=== PATIENT | female | born 1955 | race Caucasian/White ===

== ENCOUNTER 2016-04-19 08:45 | Emergency (ER) | payer OTHER ==
[~2016-04-19] VITALS: Ht 172.7 cm; Wt 50.0 kg
[~2016-04-19 08:45] MED LIST: ASPI325T PO; BLAC20TA PO
[2016-04-19 08:47] VITALS: BP 190/95; PULSE 114; RESP 24; TEMP 97.8; O2SAT 94
[2016-04-19] MEDS: RESP: ALBUTEROL 2.5 MG/IPRATROPIUM 0.5 MG NEB (SCH) INH (09:10)
[2016-04-19] MEDS ORDERED: SODIUM CHLORIDE 0.9% FLUSH 5 ML FLUSH IVF PRN (09:15)
[2016-04-19] MEDS ORDERED: methylPREDNISolone SOD SUCC 125 MG/2 ML VIAL IVP ONE (09:15)
[2016-04-19 09:47] LABS: AUTOMATED NEUTROPHIL # 2.5 TH/MM3 (1.8-7.7); BASOPHIL % 0.3 % (0.0-2.0); EOSINOPHIL # 0.2 TH/MM3 (0-0.4); EOSINOPHIL % 3.6 % (0.0-4.0); HEMATOCRIT 41.2 % (35.0-46.0); HEMO FLAGS DIFF FINAL; LYMPH % 36.5 % (9.0-44.0); LYMPHOCYTE # 1.8 TH/MM3 (1.0-4.8); MEAN CELL VOLUME 91.3 FL (80.0-100.0); MEAN CORPUSCULAR HEMOGLOBIN 32.2 PG (27.0-34.0); MEAN CORPUSCULAR HGB CONC 35.2 % (32.0-36.0); MONO % 7.6 % (0.0-8.0); PLATELET COUNT 173 TH/MM3 (150-450); RED BLOOD COUNT 4.51 MIL/MM3 (4.00-5.30); RED CELL DISTRIBUTION WIDTH 13.5 % (11.6-17.2); WHITE BLOOD COUNT 4.9 TH/MM3 (4.0-11.0)
[2016-04-19] MEDS ORDERED: VENTAER INH (09:50)
[2016-04-19 09:59] LABS: ALT (GPT) 68 U/L (10-53); ANION GAP 6 MEQ/L (5-15); AST (GOT) 62 U/L (15-37); BICARBONATE 28.9 MEQ/L (21.0-32.0); BLOOD UREA NITROGEN 18 MG/DL (7-18); CHLORIDE 108 MEQ/L (98-107); GLOMERULAR FILTRATION RATE 93 ML/MIN (>89); POTASSIUM 3.8 MEQ/L (3.5-5.1); SODIUM (NA) 143 MEQ/L (136-145)
[2016-04-19 10:01] LABS: ALKALINE PHOSPHATASE 96 U/L (45-117); TOTAL BILIRUBIN ADULT 0.4 MG/DL (0.2-1.0)
--- NOTE | 2016-04-19 10:24 | RADRPT ---
EXAM DATE/TIME: 04/19/2016 10:10 [place] COMPARISON: CHEST PA & LAT, May 10, 2013, 10:24. INDICATIONS : Shortness of breath. MEDICAL HISTORY : None. SURGICAL HISTORY : None. ENCOUNTER: Initial ACUITY: 1 day PAIN SCORE: 5/10 LOCATION: Bilateral chest FINDINGS: PA and lateral views of the chest demonstrate the lungs to be symmetrically aerated without evidence of mass, infiltrate or effusion. The cardiomediastinal contours are unremarkable. Osseous structure s are intact. CONCLUSION: No evidence of acute cardiopulmonary disease. Filipe Xiao MD on April 19, 2016 at 10:22 Board Certified Radiologist. This report was verified electronically.
[2016-04-19] MEDS ORDERED: PRED5TAB PO (11:35)
[2016-04-19] MEDS ORDERED: CIPR750T2 PO (11:35)
--- NOTE | 2016-04-19 11:35 | PD ---
HPI Chief Complaint: Respiratory Symptoms Time Seen by Provider: 08:58 Travel History International Travel<30 days: No Contact w/Intl Traveler<30days: No Traveled to known affect area: No History of Present Illness HPI Patient is a 60 year old female who comes in complaining of SOB and cough. She has history of COPD and says this has been going on for about a month on and off. She says it got worse yesterday. She used her last albuterol this morning. She denies fever or chills. She says she has some chest pain, but only with coughing. She says she quit smoking 2 months ago. PFSH Past Medical History Asthma: Yes Diminished Hearing: No Respiratory: Yes Immunizations Current: No Influenza Vaccination: No Menopausal: Yes : 5 Para: 4 Tubal Ligation: Yes Past Surgical History Other Surgery: Yes (CYST REMOVED FROM BREAST; BRAST REDUCTION) Social History Alcohol Use: No Tobacco Use: No (QUIT FOUR MONTHS AGO) Substance Use: No Allergies-Medications (Allergen,Severity, Reaction): Coded Allergies: Penicillin (Verified Allergy, Severe, 12/24/15) Reported Meds & Prescriptions Reported Meds & Active Scripts Active Reported Ventolin Hfa 18 GM Inh (Albuterol Sulfate) 90 Mcg/Act Aer 1 Puff INH Q4H PRN Review of Systems Except as stated in HPI: all other systems reviewed are Neg General / Constitutional: No: Fever, Chills Eyes: No: Blurred Vision HENT: No: Headaches, Lightheadedness Respiratory: Positive: Cough, Shortness of Breath Gastrointestinal: No: Nausea, Vomiting Musculoskeletal: No: Myalgias, Edema Skin: No Rash, No Change in Pigmentation Neurologic: No: Weakness, Dizziness Physical Exam Narrative GENERAL: Awake and alert, in no acute distress. SKIN: Warm and dry. HEAD: Atraumatic. Normocephalic. EYES: Pupils equal and round. No scleral icterus. ENT: Mucous membranes pink and moist. NECK: Trachea midline. No JVD. CARDIOVASCULAR: Regular rate and rhythm. No murmur appreciated. RESPIRATORY: No accessory muscle use. Coarse breath sounds, occasional wheezing throughout the lungs. Breath sounds equal bilaterally. MUSCULOSKELETAL: No obvious deformities. No clubbing. No cyanosis. No edema. NEUROLOGICAL: Awake and alert. No obvious cranial nerve deficits. Motor grossly within normal limits. Normal speech. PSYCHIATRIC: Appropriate mood and affect; insight and judgment normal. Data Data Last Documented VS Vital Signs Date Time Temp Pulse Resp B/P Pulse Ox O2 Delivery O2 Flow Rate FiO2 04/19/16 08:47 97.8 114 24 190/95 94 Room Air Orders Complete Blood Count With Diff (04/19/16 09:04) Comprehensive Metabolic Panel (04/19/16 09:04) Iv Access Insert/Monitor (04/19/16 09:04) Ecg Monitoring (04/19/16 09:04) Oximetry (04/19/16 09:04) Oxygen Administration (04/19/16 09:04) Chest, Pa & Lat (04/19/16 09:04) Sodium Chloride 0.9% Flush (Ns Flush) (04/19/16 09:15) Methylprednisolone So Succ Inj (Solumedr (04/19/16 09:15) Albuterol-Ipratropium Neb (Duoneb Neb) (04/19/16 09:15) Labs Laboratory Tests Test 04/19/16 08:30 White Blood Count 4.9 TH/MM3 Red Blood Count 4.51 MIL/MM3 Hemoglobin 14.5 GM/DL Hematocrit 41.2 % Mean Corpuscular Volume 91.3 FL Mean Corpuscular Hemoglobin 32.2 PG Mean Corpuscular Hemoglobin 35.2 % Concent Red Cell Distribution Width 13.5 % Platelet Count 173 TH/MM3 Mean Platelet Volume 9.6 FL Neutrophils (%) (Auto) 52.0 % Lymphocytes (%) (Auto) 36.5 % Monocytes (%) (Auto) 7.6 % Eosinophils (%) (Auto) 3.6 % Basophils (%) (Auto) 0.3 % Neutrophils # (Auto) 2.5 TH/MM3 Lymphocytes # (Auto) 1.8 TH/MM3 Monocytes # (Auto) 0.4 TH/MM3 Eosinophils # (Auto) 0.2 TH/MM3 Basophils # (Auto) 0.0 TH/MM3 CBC Comment DIFF FINAL Differential Comment Sodium Level 143 MEQ/L Potassium Level 3.8 MEQ/L Chloride Level 108 MEQ/L Carbon Dioxide Level 28.9 MEQ/L Anion Gap 6 MEQ/L Blood Urea Nitrogen 18 MG/DL Creatinine 0.65 MG/DL Estimat Glomerular Filtration 93 ML/MIN Rate Random Glucose 93 MG/DL Calcium Level 8.7 MG/DL Total Bilirubin 0.4 MG/DL Aspartate Amino Transf 62 U/L (AST/SGOT) Alanine Aminotransferase 68 U/L (ALT/SGPT) Alkaline Phosphatase 96 U/L Total Protein 8.0 GM/DL Albumin 3.7 GM/DL [facility] Medical Decision Making Medical Screen Exam Complete: Yes Emergency Medical Condition: Yes Medical Record Reviewed: Yes Differential Diagnosis COPD exacerbation versus pneumonia versus bronchitis Narrative Course Patient is a 60-year-old female who comes in complaining of shortness of breath and cough. Exam shows coarse breath sounds throughout the lungs. IV established, labs sent. Patient given 3 duo nebs and Solu-Medrol. Labs show no acute abnormalities. Chest x-ray performed shows no acute abnormalities. Patient reports feeling better after treatment. I spoke with case management about trying to get her an albuterol inhaler. She Will send a note to Dr. Charles requesting she make the inhaler available to the patient as he cannot afford it at regular [facility]. Will discharge with prescription for prednisone (4 dollars at [facility]) and Cipro (free at [facility]). Patient advised to follow up with Dr. Charles and return to the ED as needed for any worsening symptoms. Diagnosis Primary Impression: COPD (chronic obstructive pulmonary disease) Qualified Code: J44.1 - Chronic obstructive pulmonary disease with acute exacerbation Additional Impression: Bronchitis Patient Instructions: COPD (Chronic Obstructive Pulmonary Disease) (ED), General Instructions Additional Instructions: Follow up with Dr. Charles. Prednisone should be 4 [address] at [facility]. Cipro is free at [facility]. Return to the ED as needed for any worsening symptoms. Scripts Ciprofloxacin 750 Mg [id number] Mg PO BID 7 Days Ref 0 Prov:Che Alegre MD 04/19/16 Prednisone 5 Mg Tab40 Mg PO DAILY 4 Days Ref 0 Prov:Che Alegre MD 04/19/16 Disposition: 01 DISCHARGE HOME Condition: Stable Che Alegre MD Apr 19, 2016 11:35
[2016-04-19 12:01] VITALS: BP 158/86
== END 2016-04-19 12:08 | disposition home or self-care (01) ==
LOC: NEPE 08:45
DX: J44.1 Chronic obstructive pulmonary disease with (acute) exacerbation (principal); J45.909 Unspecified asthma, uncomplicated
CPT/HCPCS: 71020; 80053; 85025; 94640; 94664; 96374; 99285; J2930